=== PATIENT | female | born 1980 | race Caucasian/White ===

== ENCOUNTER 2018-05-07 15:32 | Outpatient (CLI) | payer BC ==
[~2018-05-07] VITALS: Ht 172.7 cm; Wt 136.4 kg
[2018-05-07] MEDS ORDERED: GLUCOPHAGE500 MG PO (15:37)
[2018-05-07] MEDS ORDERED: PRENAVITE1 TAB PO (15:37)
[2018-05-07] MEDS ORDERED: FERROUS SULFAT325 MG PO (15:37)
[2018-05-07 16:42] LABS: BASOPHILS 0.1 % (0-2); EOSINOPHILS 0 % (0-7); HEMATOCRIT 37.6 % (36.0-48.0); HEMOGLOBIN 12.4 g/dL (12-16); IMMATURE GRANULOCYTES 0.8 % (0-5); LYMPHOCYTES 3.1 % (15-50); MCH 26.7 pg (26.0-34.0); MEAN PLATELET VOLUME 10.3 fL (7.4-10.4); MONOCYTES 2.6 % (2-11); NEUTROPHILS 93.4 % (40-80); PLATELET COUNT 223 10x3/uL (130-400); RBC 4.64 10x6/uL (4.00-5.40); RDW 13.9 % (11.5-14.5); WBC 12.7 10x3/uL (4.8-10.8)
[2018-05-07 16:48] LABS: COLOR YELLOW (YELLOW)
[2018-05-07 16:49] LABS: APPEARANCE CLEAR (CLEAR); BILIRUBIN 2+ (NEGATIVE); GLUCOSE NEGATIVE (NEGATIVE); KETONE LARGE mg/dL (NEGATIVE); NITRITE NEGATIVE (NEGATIVE); PROTEIN 1+ mg/dL (NEGATIVE); UROBILINOGEN NORMAL (NORMAL)
[2018-05-07 16:52] LABS: BACTERIA MODERATE /hpf (NONE SEEN); MUCUS <1+ /lpf (NONE SEEN); WHITE CELLS - URINE 0-5 /hpf (0-5)
[2018-05-07 17:16] LABS: ALBUMIN 3.1 g/dL (3.4-5.0); ALKALINE PHOSPHATASE 79 U/L (46-116); ALT (SGPT) 21 U/L (10-68); CALC OSMOLALITY 270 mosm/kg (275-300); CALCIUM 8.3 mg/dL (8.5-10.1); CARBON DIOXIDE 19.9 mmol/L (21.0-32.0); CHLORIDE - SERUM 102 mmol/L (98-107); CREATININE - SERUM 0.7 mg/dL (0.6-1.3); GLUCOSE 165 mg/dL (74-106); POTASSIUM - SERUM 3.6 mmol/L (3.5-5.1); PROTEIN - SERUM 7.1 g/dL (6.4-8.2); SODIUM 133 mmol/L (136-145); UREA NITROGEN 14 mg/dL (7-18); eGFR NON AFRICAN AMERICAN > 90 mL/min (90-120)
[2018-05-07 21:02] VITALS: BP 126/63; Ht 172.7 cm; Wt 136.4 kg
== END 2018-05-08 18:15 | disposition home or self-care (01) ==
LOC: D.LDO 15:32 → D.ER 15:32 → EDSTATUS 16:14 → D.LD 21:33 → D.LDO 05-08 18:15
PROVIDERS: Family Medicine; ATTEND Obstetrics & Gynecology
DX: O26.899 Other specified pregnancy related conditions, unspecified trimester (principal); Z3A.00 Weeks of gestation of pregnancy not specified

== ENCOUNTER 2018-05-12 17:48 | Emergency (ER) | payer BC ==
[~2018-05-12] VITALS: Ht 172.7 cm; Wt 136.4 kg
[~2018-05-12 17:48] MED LIST: FERROUS SULFAT325 MG PO; GLUCOPHAGE500 MG PO; PRENAVITE1 TAB PO
[2018-05-12 17:54] VITALS: Ht 172.7 cm; Wt 136.4 kg
[2018-05-12 18:20] LABS: BASOPHILS 0.2 % (0-2); EOSINOPHILS 1.2 % (0-7); HEMATOCRIT 31.4 % (36.0-48.0); HEMOGLOBIN 10.6 g/dL (12-16); IMMATURE GRANULOCYTES 1.1 % (0-5); LYMPHOCYTES 22.9 % (15-50); MCHC 33.8 g/dL (31.0-37.0); MCV 80.1 fL (80.0-100.0); MEAN PLATELET VOLUME 9.7 fL (7.4-10.4); MONOCYTES 5.8 % (2-11); NEUTROPHILS 68.8 % (40-80); PLATELET COUNT 219 10x3/uL (130-400); RBC 3.92 10x6/uL (4.00-5.40); RDW 14.1 % (11.5-14.5); WBC 8.5 10x3/uL (4.8-10.8)
[2018-05-12 18:35] LABS: APPEARANCE CLEAR (CLEAR); BILIRUBIN NEGATIVE (NEGATIVE); COLOR YELLOW (YELLOW); GLUCOSE NEGATIVE (NEGATIVE); KETONE NEGATIVE (NEGATIVE); NITRITE NEGATIVE (NEGATIVE); PROTEIN NEGATIVE (NEGATIVE); SPECIFIC GRAVITY 1.005 (1.005-1.020); UROBILINOGEN NORMAL (NORMAL)
[2018-05-12 18:38] LABS: ALBUMIN 2.9 g/dL (3.4-5.0); ALKALINE PHOSPHATASE 94 U/L (46-116); ALT (SGPT) 45 U/L (10-68); BACTERIA MODERATE /hpf (NONE SEEN); BILIRUBIN - TOTAL 0.18 mg/dL (0.2-1.3); CALC OSMOLALITY 275 mosm/kg (275-300); CALCIUM 8.4 mg/dL (8.5-10.1); CARBON DIOXIDE 26.3 mmol/L (21.0-32.0); CHLORIDE - SERUM 103 mmol/L (98-107); CREATININE - SERUM 0.6 mg/dL (0.6-1.3); EPITHELIAL CELLS 0-5 /hpf (0-5); GLUCOSE 90 mg/dL (74-106); POTASSIUM - SERUM 3.3 mmol/L (3.5-5.1); PROTEIN - SERUM 7.1 g/dL (6.4-8.2); RED CELLS - URINE 0-5 /hpf (0-5); SODIUM 140 mmol/L (136-145); UREA NITROGEN 5 mg/dL (7-18); WHITE CELLS - URINE 0-5 /hpf (0-5); eGFR NON AFRICAN AMERICAN > 90 mL/min (90-120)
[2018-05-12 18:51] LABS: HCG SERUM POSITIVE (NEGATIVE)
[2018-05-12] MEDS ORDERED: DIFLUCAN150 MG PO (20:22)
[2018-05-12 20:59] VITALS: BP 140/78
== END 2018-05-12 20:35 | disposition home or self-care (01) ==
LOC: D.ER 17:48
PROVIDERS: Family Medicine
DX: O26.851 Spotting complicating pregnancy, first trimester (principal); Z3A.11 11 weeks gestation of pregnancy; O98.811 Other maternal infectious and parasitic diseases complicating pregnancy, first trimester; B37.9 Candidiasis, unspecified

== ENCOUNTER → 2018-08-20 10:35 | Outpatient (CLI) | payer BC ==
[2018-05-12 17:54] VITALS: BMI 45.7
[~2018-08-20 10:35] MED LIST changes: +DIFLUCAN150 MG PO
[2018-08-20 10:58] LABS: APPEARANCE SL CLDY (CLEAR); BILIRUBIN NEGATIVE (NEGATIVE); COLOR YELLOW (YELLOW); GLUCOSE NEGATIVE (NEGATIVE); KETONE NEGATIVE (NEGATIVE); NITRITE NEGATIVE (NEGATIVE); PROTEIN NEGATIVE (NEGATIVE); SPECIFIC GRAVITY 1.025 (1.005-1.020); UROBILINOGEN NORMAL (NORMAL)
== END | disposition home or self-care (01) ==
LOC: D.LDO 10:35
PROVIDERS: ATTEND Obstetrics & Gynecology
DX: O16.9 Unspecified maternal hypertension, unspecified trimester (principal); Z3A.00 Weeks of gestation of pregnancy not specified

== ENCOUNTER → 2018-09-26 11:04 | Outpatient (CLI) | payer BC ==
[2018-05-12 17:54] VITALS: BMI 45.7
[~2018-09-26 11:04] MED LIST changes: +PERCOCET 5-3251 TAB PO; +PROCARDIA XL30 MG PO
== END | disposition home or self-care (01) ==
LOC: D.LDO 11:04
PROVIDERS: ATTEND Obstetrics & Gynecology
DX: O24.913 Unspecified diabetes mellitus in pregnancy, third trimester (principal); Z3A.30 30 weeks gestation of pregnancy

== ENCOUNTER → 2018-10-05 15:56 | Outpatient (CLI) | payer BC ==
[2018-05-12 17:54] VITALS: BMI 45.7
== END | disposition home or self-care (01) ==
LOC: D.LDO 15:56
PROVIDERS: ATTEND Obstetrics & Gynecology
DX: O24.419 Gestational diabetes mellitus in pregnancy, unspecified control (principal); Z3A.31 31 weeks gestation of pregnancy

== ENCOUNTER 2018-10-12 15:01 | Outpatient (CLI) | payer BC ==
[2018-05-12 17:54] VITALS: BMI 45.7
[~2018-10-12 15:01] MED LIST changes: -PERCOCET 5-3251 TAB PO; -PROCARDIA XL30 MG PO
[2018-10-12 18:19] LABS: APPEARANCE CLEAR (CLEAR); BILIRUBIN NEGATIVE (NEGATIVE); COLOR STRAW (YELLOW); GLUCOSE NEGATIVE (NEGATIVE); KETONE SMALL mg/dL (NEGATIVE); NITRITE NEGATIVE (NEGATIVE); PROTEIN NEGATIVE (NEGATIVE); SPECIFIC GRAVITY 1.005 (1.005-1.020); UROBILINOGEN NORMAL (NORMAL)
[2018-10-12 18:20] LABS: BACTERIA FEW /hpf (NONE SEEN); EPITHELIAL CELLS 0-5 /hpf (0-5); RED CELLS - URINE 0-5 /hpf (0-5); WHITE CELLS - URINE 0-5 /hpf (0-5)
== END 2018-10-13 07:30 | disposition home or self-care (01) ==
LOC: D.LDO 15:01 → D.LD 20:47 → D.LDO 10-13 07:30
PROVIDERS: Student in an Organized Health Care Education/Training Program; ATTEND Obstetrics & Gynecology
DX: O47.03 False labor before 37 completed weeks of gestation, third trimester (principal); Z3A.33 33 weeks gestation of pregnancy

== ENCOUNTER → 2018-10-18 10:39 | Outpatient (CLI) | payer BC ==
[2018-05-12 17:54] VITALS: BMI 45.7
== END | disposition home or self-care (01) ==
LOC: D.LDO 10:39
PROVIDERS: ATTEND Obstetrics & Gynecology
DX: O24.419 Gestational diabetes mellitus in pregnancy, unspecified control (principal); Z3A.33 33 weeks gestation of pregnancy

== ENCOUNTER → 2018-10-19 16:20 | Outpatient (CLI) | payer MEDICAID ==
[2018-05-12 17:54] VITALS: BMI 45.7
[2018-10-19 17:03] LABS: BASOPHILS 0.1 % (0-2); EOSINOPHILS 0.7 % (0-7); HEMATOCRIT 28.1 % (36.0-48.0); HEMOGLOBIN 8.8 g/dL (12-16); IMMATURE GRANULOCYTES 0.4 % (0-5); LYMPHOCYTES 18.6 % (15-50); MCH 22.9 pg (26.0-34.0); MCHC 31.3 g/dL (31.0-37.0); MEAN PLATELET VOLUME 10.6 fL (7.4-10.4); MONOCYTES 7.3 % (2-11); NEUTROPHILS 72.9 % (40-80); PLATELET COUNT 168 10x3/uL (130-400); RBC 3.85 10x6/uL (4.00-5.40); RDW 15.3 % (11.5-14.5); WBC 7.4 10x3/uL (4.8-10.8)
[2018-10-19 17:10] LABS: PROTEIN - URINE 1.5 mg/dL (0.0-11.9)
[2018-10-19 17:28] LABS: ALKALINE PHOSPHATASE 192 U/L (46-116); ALT (SGPT) 35 U/L (10-68); BILIRUBIN - DIRECT 0.12 mg/dL (0.00-0.30); BILIRUBIN - INDIRECT 0.21 mg/dL (0.00-1.00); BILIRUBIN - TOTAL 0.33 mg/dL (0.2-1.3); CALC OSMOLALITY 275 mosm/kg (275-300); CALCIUM 8.4 mg/dL (8.5-10.1); CARBON DIOXIDE 23.4 mmol/L (21.0-32.0); CHLORIDE - SERUM 107 mmol/L (98-107); CREATININE - SERUM 0.7 mg/dL (0.6-1.3); POTASSIUM - SERUM 3.8 mmol/L (3.5-5.1); PROTEIN - SERUM 5.4 g/dL (6.4-8.2); SODIUM 141 mmol/L (136-145); UREA NITROGEN 4 mg/dL (7-18); URIC ACID 3.9 mg/dL (2.6-7.2); eGFR NON AFRICAN AMERICAN > 90 mL/min (90-120)
[2018-10-19 17:32] LABS: GLUCOSE 64 mg/dL (74-106)
== END | disposition home or self-care (01) ==
LOC: D.LDO 16:20
PROVIDERS: ATTEND Obstetrics & Gynecology
DX: O10.913 Unspecified pre-existing hypertension complicating pregnancy, third trimester (principal); Z3A.33 33 weeks gestation of pregnancy

== ENCOUNTER → 2018-10-20 17:30 | Outpatient (CLI) | payer MEDICAID ==
[2018-05-12 17:54] VITALS: BMI 45.7
== END | disposition home or self-care (01) ==
LOC: D.LDO 17:30
PROVIDERS: ATTEND Obstetrics & Gynecology
DX: O26.893 Other specified pregnancy related conditions, third trimester (principal); Z3A.00 Weeks of gestation of pregnancy not specified

== ENCOUNTER 2018-10-23 12:24 | Outpatient (CLI) | payer MEDICAID ==
[2018-05-12 17:54] VITALS: BMI 45.7
== END 2018-10-23 12:33 ==
LOC: D.LDO 12:24
PROVIDERS: ATTEND Obstetrics & Gynecology
DX: O10.913 Unspecified pre-existing hypertension complicating pregnancy, third trimester (principal); Z3A.34 34 weeks gestation of pregnancy

== ENCOUNTER → 2018-10-26 11:58 | Outpatient (CLI) | payer SELFPAY ==
[2018-05-12 17:54] VITALS: BMI 45.7
[2018-10-26 12:43] LABS: BASOPHILS 0.1 % (0-2); EOSINOPHILS 0.5 % (0-7); HEMATOCRIT 26.6 % (36.0-48.0); HEMOGLOBIN 8.1 g/dL (12-16); IMMATURE GRANULOCYTES 0.6 % (0-5); LYMPHOCYTES 16.9 % (15-50); MCH 22.2 pg (26.0-34.0); MCHC 30.5 g/dL (31.0-37.0); MCV 72.9 fL (80.0-100.0); MEAN PLATELET VOLUME 10.2 fL (7.4-10.4); MONOCYTES 5.9 % (2-11); PLATELET COUNT 169 10x3/uL (130-400); RBC 3.65 10x6/uL (4.00-5.40); RDW 15.3 % (11.5-14.5)
[2018-10-26 13:08] LABS: APPEARANCE CLEAR (CLEAR); BILIRUBIN NEGATIVE (NEGATIVE); COLOR YELLOW (YELLOW); GLUCOSE NEGATIVE (NEGATIVE); KETONE MODERATE mg/dL (NEGATIVE); NITRITE NEGATIVE (NEGATIVE); PROTEIN NEGATIVE (NEGATIVE)
[2018-10-26 13:08] LABS: ALBUMIN 2.2 g/dL (3.4-5.0); ALKALINE PHOSPHATASE 173 U/L (46-116); ALT (SGPT) 25 U/L (10-68); BILIRUBIN - DIRECT 0.05 mg/dL (0.00-0.30); BILIRUBIN - INDIRECT 0.24 mg/dL (0.00-1.00); BILIRUBIN - TOTAL 0.29 mg/dL (0.2-1.3); CALC OSMOLALITY 263 mosm/kg (275-300); CALCIUM 8.1 mg/dL (8.5-10.1); CARBON DIOXIDE 25.8 mmol/L (21.0-32.0); CHLORIDE - SERUM 105 mmol/L (98-107); CREATININE - SERUM 0.6 mg/dL (0.6-1.3); GLUCOSE 86 mg/dL (74-106); POTASSIUM - SERUM 3.5 mmol/L (3.5-5.1); PROTEIN - SERUM 5.4 g/dL (6.4-8.2); SODIUM 134 mmol/L (136-145); UREA NITROGEN 5 mg/dL (7-18); URIC ACID 3.5 mg/dL (2.6-7.2); eGFR NON AFRICAN AMERICAN > 90 mL/min (90-120)
[2018-10-26 13:09] LABS: BACTERIA MODERATE /hpf (NONE SEEN); MUCUS <1+ /lpf (NONE SEEN); RED CELLS - URINE RARE /hpf (0-5)
== END | disposition home or self-care (01) ==
LOC: D.LDO 11:58
PROVIDERS: Student in an Organized Health Care Education/Training Program; ATTEND Obstetrics & Gynecology
DX: O16.3 Unspecified maternal hypertension, third trimester (principal); Z3A.34 34 weeks gestation of pregnancy

== ENCOUNTER → 2018-10-30 13:37 | Outpatient (CLI) | payer SELFPAY ==
[2018-05-12 17:54] VITALS: BMI 45.7
== END | disposition home or self-care (01) ==
LOC: D.LDO 13:37
PROVIDERS: ATTEND Obstetrics & Gynecology
DX: O26.893 Other specified pregnancy related conditions, third trimester (principal); Z3A.35 35 weeks gestation of pregnancy

== ENCOUNTER → 2018-11-02 16:05 | Outpatient (CLI) | payer SELFPAY ==
[2018-05-12 17:54] VITALS: BMI 45.7
== END | disposition home or self-care (01) ==
LOC: D.LDO 16:05
PROVIDERS: ATTEND Obstetrics & Gynecology
DX: O26.90 Pregnancy related conditions, unspecified, unspecified trimester (principal)

== ENCOUNTER → 2018-11-06 11:53 | Outpatient (CLI) | payer SELFPAY ==
[2018-05-12 17:54] VITALS: BMI 45.7
== END | disposition home or self-care (01) ==
LOC: D.LDO 11:53
PROVIDERS: ATTEND Student in an Organized Health Care Education/Training Program
DX: O24.419 Gestational diabetes mellitus in pregnancy, unspecified control (principal); Z3A.36 36 weeks gestation of pregnancy

== ENCOUNTER → 2018-11-09 10:08 | Outpatient (CLI) | payer MEDICAID ==
[2018-05-12 17:54] VITALS: BMI 45.7
== END | disposition home or self-care (01) ==
LOC: D.LDO 10:08
PROVIDERS: ATTEND Student in an Organized Health Care Education/Training Program
DX: O24.419 Gestational diabetes mellitus in pregnancy, unspecified control (principal)

== ENCOUNTER → 2018-11-13 10:57 | Outpatient (CLI) | payer MEDICAID ==
[2018-05-12 17:54] VITALS: BMI 45.7
[~2018-11-13 10:57] MED LIST changes: +PERCOCET 5-3251 TAB PO; +PROCARDIA XL30 MG PO
== END | disposition home or self-care (01) ==
LOC: D.LDO 10:57
PROVIDERS: ATTEND Obstetrics & Gynecology
DX: O24.419 Gestational diabetes mellitus in pregnancy, unspecified control (principal)

== ENCOUNTER 2018-11-18 05:08 | Inpatient (IN) | payer MEDICAID ==
[2018-11-18] VITALS (11 sets, daily range): BP systolic 130–165; BP diastolic 69–86; Ht 172.7 cm; Wt 137.4 kg
[~2018-11-18] VITALS: Ht 172.7 cm; Wt 137.4 kg
[~2018-11-18 05:08] MED LIST changes: -PERCOCET 5-3251 TAB PO; -PROCARDIA XL30 MG PO
[2018-11-18 06:04] LABS: HEMATOCRIT 29.5 % (36.0-48.0); HEMOGLOBIN 8.8 g/dL (12-16); MCH 21.8 pg (26.0-34.0); MCHC 29.8 g/dL (31.0-37.0); MEAN PLATELET VOLUME 9.7 fL (7.4-10.4); RBC 4.04 10x6/uL (4.00-5.40); RDW 16.6 % (11.5-14.5); WBC 10.2 10x3/uL (4.8-10.8)
--- NOTE | 2018-11-18 08:30 | NUR ---
DR CHAUDHRY HERE. V.O. RECEIVED FOR [facility] AT 1200 TODAY.
--- NOTE | 2018-11-18 08:30 | NUR ---
RECEIVED PT FROM RR VIA PT BED, PT AWAKE, ALERT, ORIENTED TO TIME, PLACE, PERSON, AND SITUATION. DENIES C/O PAIN. VSS. AFEBRILE. RESP EVEN AND UNLABORED, HEART RRR AT 54 BPM APICALLY. LUNGS CTAB, ABD SOFT AND APPROPRIATELY TENDER TO LIGHT PALPATION, FUNDUS FIRM AT U/U AND MIDLINE, LOCHIA RUBRA MODERATE AMOUNT, NO CLOTS, ICE PACK OVERLAY ABD INCISIONAL DRESSING. CRANE CATHETER IN PLACE DRAINING CONCENTRATED DARK YELLOW URINE TO GRAVITY DRAINAGE, STAT LOCK DEVICE PLACED ON INNER RIGHT THIGH. PT UNABLE TO MOVE B LE BUT CAN WIGGLE TOES B. PEDAL PULSES EQUAL AT 1+ B. B UE AND B LE COOL TO TOUCH, SCDS APPLIED TO B LE AND FUNCTIONING APPROPRIATELY. CARLOS'S SIGN NEGATIVE B. LEFT A/C CONVERTED TO SALINE LOCK GENTAMYCIN INFUSION COMPLETED WHILE IN RR. RIGHT A/C PIV PATENT INFUSING NS WITH 20 UNITS PITOCIN ADDED AT 125ML/HR TO IVAC PUMP, BOTH A/C SITES BENIGN TO INSPECTION. DISCUSSED PLAN OF CARE, USE OF PAIN MEDS PRN, INCENTIVE SPIROMETRY, CLEAR LIQUID DIET, USUAL LENGTH OF STAY AFTER . QUESTIONS ANSWERED, PT STATES UNDERSTANDING OF ALL INSTRUCTIONS PROVIDED. CALL LIGHT IN EASY REACH, HOB ELEVATED 20 DEGREES, BED BRAKES LOCKED, SR UP X2, BED IN LOW POSITION, FAMILY AT BS. WILL MONITOR.
--- NOTE | 2018-11-18 08:50 | NUR ---
PT AAOX4, RESP EVEN AND UNLABORED, DENIES C/O PAIN OR DISCOMFORT, FF AT U/U AND MIDLINE, LOCHIA RUBRA MODERATE AMOUNT, NO CLOTS, PERICARE PROVIDED, CRANE WITH DARK YELLOW URINE TO TUBING, DIET [place] SOD[place] AND CUP OF ICE WATER PROVIDED UPON REQUEST. CALL LIGHT IN EASY REACH. WILL MONITOR.
--- NOTE | 2018-11-18 09:05 | NUR ---
NAD NOTED, RESP EVEN AND UNLABORED, VSS. FF AT U/U, LOCHIA RUBRA MODERATE AMOUNT, NO NEEDS VOICED, TOLERATING PO FLUIDS WELL. CALL LIGHT IN EASY REACH.
--- NOTE | 2018-11-18 09:40 | NUR ---
PT VISITING WITH FAMILY AT BS, NAD NOTED, DENIES NEEDS OR CONCERNS, FF AT U/U AND RAHEEL GALVEZ MODERATE AMOUNT, LTI CDI TO INSPECTION, ICE PACK OVERLAY IN PLACE. PIV SITES BENIGN TO INSPECTION AT THIS TIME AND COVERED WITH WASHCLOTH/TAPE TO PREVENT DISLODGING SINCE THERE WAS DIFFICULTY PLACING THIS AM. WILL MONITOR.
--- NOTE | 2018-11-18 10:36 | NUR ---
phoned dr flores to report elevated blood pressures, relayed that pt does not want pain medicine until sees baby leave for [facility]. will give pain meds and notify md of bp after pain meds.
--- NOTE | 2018-11-18 10:53 | NUR ---
updated dr flores on pt bp after giving prn pain meds. no new orders received.
--- NOTE | 2018-11-18 11:15 | NUR ---
BP REMAINS ELEVATED, LIGHTS DIMMED, FAMILY AT BS, FUNDUS FIRM AT U/U AND MIDLINE, LOCHIA RUBRA MODERATE AMOUNT, CRANE WITH CONCENTRATED URINE IN TUBING AND TO GRAVITY DRAINAGE, PT ABLE TO MOVE B LE, LARGE BP CUFF PLACED ON L UE AND PT INSTRUCTED TO KEEP STRAIGHT WHEN BP TAKEN. STATES UNDERSTANDING AND WILL MONITOR.
[2018-11-18 11:39] LABS: BASOPHILS 0.1 % (0-2); EOSINOPHILS 0 % (0-7); HEMATOCRIT 28.5 % (36.0-48.0); HEMOGLOBIN 8.4 g/dL (12-16); IMMATURE GRANULOCYTES 0.3 % (0-5); MCH 21.5 pg (26.0-34.0); MCHC 29.5 g/dL (31.0-37.0); MCV 73.1 fL (80.0-100.0); MEAN PLATELET VOLUME 10.2 fL (7.4-10.4); MONOCYTES 7.7 % (2-11); NEUTROPHILS 85.9 % (40-80); PLATELET COUNT 201 10x3/uL (130-400); RDW 16.5 % (11.5-14.5); WBC 14.8 10x3/uL (4.8-10.8)
--- NOTE | 2018-11-18 12:15 | NUR ---
CLEAR LIQUIDS PROVIDED TO PT FOR LUNCH, FAMILY AT BS, DENIES NEEDS OR CONCERNS, RESP EVEN AND UNLABORED, CALL LIGHT IN EASY REACH. WILL MONITOR.
--- NOTE | 2018-11-18 13:34 | NUR ---
PT AWAKE, SITTING UP AT 30 DEGREES IN BED, TOLERATING CLEAR LIQUIDS, FUNDUS FIRM AT U/1 AND MIDLINE, LOCHIA RUBRA MODERATE TO LARGE AMOUNT WITH NO CLOTS VISBLE, PERICARE PROVIDED, REPOSITIONED TO COMFORT, CALL LIGHT IN EASY REACH, CONTINUE TO MONITOR.
--- NOTE | 2018-11-18 14:18 | NUR ---
ROUNDS COMPLETED, PT TALKING ON CELL PHONE WHILE SITTING UP IN BED, DENIES NEEDS CONCERNS OR DESIRES AT THIS TIME, CALL LIGHT IN EASY REACH, WILL MONITOR.
--- NOTE | 2018-11-18 15:52 | NUR ---
PT AAOX4, TALKATIVE, NAD NOTED. RESP EVEN AND UNLABORED, INCENTIVE SPIROMETRY UP TO 2500ML INSPIRED VOLUME, HUNG 1000ML NS WITH 20 UNITS PITOCIN ADDED AND INFUSING AT 125ML/HR PER IVAC PUMP, FF AT U/1 AND MIDLINE, LOCHIA RUBRA MODERATE AMOUNT, PERICARE PROVIDED, REPOSITIONED TO COMFORT, SCDS ON BILATERALLY AND FUNCTIONING APPROPRIATELY. CRANE CATHETER TO GRAVITY DRAINAGE WITH CONCENTRATED APPEARING URINE NOTED IN TUBING AND COLLECTION CHAMBER. DENIES NEED FOR PAIN MEDS ON INQUIRY, FAMILY AND FRIENDS AT BS. WILL MONITOR. CALL LIGHT IN EASY REACH.
--- NOTE | 2018-11-18 16:22 | NUR ---
PT C/O ABD INCISIONAL PAIN AND CRAMPING RATES 5/10 ON NUMERIC PAIN SCALE, PRN PAIN MED GIVEN SIVP TO LEFT A/C WITHOUT DIFFICULTY, DINNER TRAY PROVIDED WITH CLEAR LIQUIDS. NAD NOTED AT THIS TIME, WILL CONTINUE TO MONITOR.
--- NOTE | 2018-11-18 17:30 | NUR ---
consumed 100% dinner tray, tolerating clear liquids well, resp even and unlabored, denies needs or concerns at this time, denies c/o pain. call light in easy reach continue to monitor.
--- NOTE | 2018-11-18 18:10 | NUR ---
PT TURNED TO LEFT LATERAL TILT POSITION, PERIPADS/CHUX REPLACED, PERICARE AND CRANE CARE PROVIDED PER FACILITY PROTOCOL, FRESH CUP OF ICE WATER AND DIET LEMON [place] SODA PROVIDED PER PT REQUEST, GOWN CHANGED PER REQUEST, ADDITIONAL LINENS PROVIDED TO PT MOTHER WELL. DENIES NEED FOR PAIN MEDS OR OTHER CONCERNS AT THIS TIME, CALL LIGHT IN EASY REACH, WILL MONITOR.
--- NOTE | 2018-11-18 18:55 | NUR ---
report given to oncoming shift staff.
--- NOTE | 2018-11-18 19:17 | NUR ---
RECEIVED BEDSIDE SHIFT REPORT, INFORMED PT THAT I WILL BE BACK SHORTLY TO DO ASSESSMENT, PT VERBALIZES UNDERSTANDING, DENIES NEEDS AT THIS TIME, PT'S MOM AT BEDSIDE
--- NOTE | 2018-11-18 20:15 | NUR ---
ASSESSMENT PER FLOW SHEET, VS OBTAINED, SALINE LOCK IN LEFT AC INTACT WITH NO REDNESS OR EDEMA, IV IN RIGHT AC INTACT INFUSING VIA PUMP NS WITH PITOCIN AT 125 ML/HR, FF, ML, U/1, LITE BLEEDING NOTED WITH NO CLOTS, BIKINI INC WITH LARGE DRESSING CDI WITH NO DRAINAGE NOTED, FRESH ICE PACK TO ABD, CRANE CATH INTACT DRAINING DARK YELLOW URINE, 200 MLS EMPTIED FROM CRANE CHAMBER TO CRANE BAG, PT DENIES FLATUS, PT INST ON AND DEMONSTRATED I.S., PT REQUESTED AND SERVED FRESH H20, SCD'S ON AND WORKING PROPERLY, PT DENIES FURTHER NEEDS, PT'S MOM AT BEDSIDE
--- NOTE | 2018-11-18 20:35 | NUR ---
DR CHAUDHRY NOTIFIED, INQUIRED ABOUT 12 HOUR POST OP ORDERS, ORDERS RECEIVED, READ BACK AND VERIFIED
--- NOTE | 2018-11-18 21:00 | NUR ---
POC DISCUSSED WITH PT REGARDING REMOVAL OF CRANE CATH, SALINE LOCK IV, AMB, DIET, AND PAIN MED, PT STATES "I CAN'T TAKE ADVIL SINCE I HAVE HAD THIS GASTRIC BY [facility], THEY SAID TO ONLY TAKE TYLENOL", PT VERBALIZES UNDERSTANDING, ADM MORPHINE DILUTED IN 5MLS OF NS ADM SIVP PER MD ORDERS, SEE EMAR, PT REQUESTED AND SERVED SANDWICH TRAY, INFORMED PT THAT I WILL COME BACK IN ABOUT 30 MINUTES OR SO TO SALINE LOCK IV, REMOVE CRANE, AND TRANSFER TO ROOM 1257, PT VERBALIZES UNDERSTANDING PT DENIES FURTHER NEEDS AT THIS TIME
--- NOTE | 2018-11-18 21:29 | NUR ---
DR CHAUDHRY NOTIFIED REGARDING ADVIL, ORDERS FOR ADVIL D/C'ED AND NEW ORDERS FOR TYLENOL, AND ALSO TO DO A FASTING BLOOD SUGAR AT 6AM, ORDERS READ BACK AND VERIFIED
--- NOTE | 2018-11-18 21:53 | NUR ---
PT FINISHED EATING SANDWICH TRAY, IV CONVERTED TO SALINE LOCK, BOTH SALINE LOCKS FLUSHED WITH 10MLS EACH OF NS WITH NO DIFFICULTY, CRANE CATH REMOVED, TIP INTACT, PT PELON WELL, PT INST ON AND VERBALIZES UNDERSTANDING OF AMB TO BR, PT TO SIDE OF BED, PT AMB TO BR WITH ASSISTANCE, GAIT STEADY, PT TO COMMODE, REPORTS VOIDING "A LITTLE", INFORMED PT THAT THERE WILL BE A [place] HAT IN OTHER ROOM FOR HER TO BE SURE AND USE, PT VERBALIZES UNDERSTANDING, ASSISTED PT WITH LLUVIA CARE, LLUVIA PAD AND PANTIES, PT'S MOM SHOWN ROOM 1257, ASSISTED HER WITH ALL BELONGINGS, PT TO , TRANSFERRED TO ROOM 1257
--- NOTE | 2018-11-18 22:22 | NUR ---
SCD'S PLACED ON PT, WORKING PROPERLY, ORIENTED TO ROOM, BED IN LOW POSITION, SIDE RAILS X 2, CALL LIGHT IN REACH, ASSISTED PT'S MOM WITH COUCH/BED
[2018-11-19] VITALS (10 sets, daily range): BP systolic 130–159; BP diastolic 70–91
--- NOTE | 2018-11-19 00:20 | NUR ---
PT RESTING WITH EYES CLOSED, AROUSES TO SOFT VERBAL STIMULATION, VS OBTAINTED, PT UP TO BR WITH ASSISTANCE, VOIDED 600 MLS OF LIGHTLY BLOOD TINGED URINE WITH NO DIFFICULTY, ASSISTED PT WITH [place] PAD AND PANTIES, PT BACK TO BED, FRESH ICE PACK TO ABD, SCD'S RECONNECTED AND WORKING PROPERLY, DENIES PAIN AT THIS TIME, REQUESTS PAIN MED AT 2AM, PT'S MOM AT BEDSIDE
--- NOTE | 2018-11-19 02:06 | NUR ---
PT RESTING WITH EYES CLOSED, AROUSES TO SOFT VERBAL STIMULATION, ADM PERCOCET PER MD ORDERS, SEE EMAR, PT DENIES FURTHER NEEDS AT THIS TIME
--- NOTE | 2018-11-19 04:32 | NUR ---
PT RESTING WITH EYES CLOSED, RESP QUIET, NO DISTRESS NOTED, LEFT UNDISTURBED AT THIS TIME, PT'S MOM ASLEEP ON COUCH
[2018-11-19 05:50] LABS: BASOPHILS 0.2 % (0-2); EOSINOPHILS 0.8 % (0-7); IMMATURE GRANULOCYTES 0.4 % (0-5); LYMPHOCYTES 11.4 % (15-50); MCH 21.2 pg (26.0-34.0); MCHC 28.8 g/dL (31.0-37.0); MCV 73.7 fL (80.0-100.0); MONOCYTES 8.6 % (2-11); NEUTROPHILS 78.6 % (40-80); PLATELET COUNT 190 10x3/uL (130-400); RBC 3.53 10x6/uL (4.00-5.40); RDW 16.7 % (11.5-14.5)
[2018-11-19 05:58] LABS: WBC 10.6 10x3/uL (4.8-10.8)
--- NOTE | 2018-11-19 05:58 | NUR ---
PT COVERAGE SPECIALIST LIGHT, PT REQUESTING FSBS NOW SO SHE CAN EAT, INFORMED PT THAT I I WILL BE THERE IN JUST A FEW MINUTES, PT VERBALIZES UNDERSTANDING
[2018-11-19 05:59] LABS: HEMOGLOBIN 7.5 g/dL (12-16)
--- NOTE | 2018-11-19 06:02 | NUR ---
OBTAINED FSBS AND VS, PT REPORTS VOIDING TWICE, ONCE 1000 AND THEN 500, PT REPORTS LITE BLEEDING WITH NO CLOTS, INFORMED PT OF LAB WORK AND THAT I WILL CALL DR CHAUDHRY REGARDING VS, FSBS, VOIDS, AND LAB, PT VERBALIZES UNDERSTANDING, DENIES NEEDS OR PAIN AT THIS TIME, PT'S MOM AT BEDSIDE
--- NOTE | 2018-11-19 06:13 | NUR ---
DR CHAUDHRY NOTIFIED, REPORT OF PT'S VS, FSBS, OUTPUT, LAB, AND ASYMPTOMATIC, ORDERS RECEIVED TO GIVE THE PT TO RECEIVE 1 UNIT OF PRBC, ORDERS READ BACK AND VERIFIED
--- NOTE | 2018-11-19 06:25 | NUR ---
INFORMED PT OF OPTION OF RECEIVING 1 UNIT OF PRBC, PT OPTS TO HAVE THE 1 UNIT TRANSFUSED, PT VERBALIZES UNDERSTANDING OF BLOOD TRANSFUSION
--- NOTE | 2018-11-19 07:10 | NUR ---
SHIFT REPORT TO DAY SHIFT
--- NOTE | 2018-11-19 07:29 | NUR ---
ASSUMED CARE OF THIS PATIENT AT THIS TIME. SITTING UP IN BED WATCHING TV. WAITING ON BREAKFAST TO BE SERVED. WILL COMPLETE SHIFT ASSESSMENT AFTER BREAKFAST. WILL RECIEVE 1 U PRBC THIS AM. AT [facility] IN [place]. 1 DAY POST OP C/S, A+, RUBELLA IMMUNE, WILL CHECK TDAP AND FLU VACCINE STATUS. SIDE RAILS UP X 2, CALL LIGHT IN REACH, VISITORS ON COUCH.
--- NOTE | 2018-11-19 07:29 | NUR ---
ASSUMED CARE OF THIS PATIENT SITTING UP IN BED HOLDING . BREAKFAST TRAY WAS SERVED. TEMP 98.1. WILL COMPLETE SHIFT ASSESSMENT AFTER BREAKFAST. BREASTFEEDER, NON-SMOKER, O+, GBS NEG, RUBELLA IMMUNE, WILL CHECK TDAP STATUS AND FLU VACCINE STATUS. ANTICIPATE DC HOME TODAY.
--- NOTE | 2018-11-19 08:45 | NUR ---
PERCOCET 10 MG GIVEN PO FOR RELIEF OF 6/10 INCISIONAL BURNING AND CRAMPING. JUST FINISHED PUMPING. WILL COMPLETE SHIFT ASSESSMENT NOW. DESIRES TO SHOWER BEFORE BLOOD TRANSFUSION IS INITIATED. HAD FLU AND TDAP VACCINATIONS DURNING PER PT STATEMENT.
--- NOTE | 2018-11-19 09:23 | NUR ---
DR CHAUDHRY HERE. NOTIFIED OF BP'S AND METHOD OF TAKING. ALSO NOTIFIED PT JUST RECEIVED PAIN MEDICATION. NO NEW ORDERS AT THIS TIME.
--- NOTE | 2018-11-19 10:20 | NUR ---
FIRST UNIT PRBC STARTED AFTER TWO PERSON VERIFICATION COMPLETED WITH MAUREEN WEST, RN IN ROOM. INFUSED NS R AC PRIOR TO STARTING BLOOD IV SITE PATENT WITHOUT PAIN, ERRYTHEMA. BLOOD STARTED AT 75 ML/HR PER ALARIS PUMP. SITTING IN BED. REVIEWED SIGNS OF POSSIBLE TRANSFUSION REACTION, PERMIT ON CHART. VS OBTAINED, SEE FLOW SHEET. SIDE RAILS UP X 2, CALL LIGHT IN REACH.
--- NOTE | 2018-11-19 10:35 | NUR ---
REMAINED IN ROOM WITH PT DURING FIRST 15 MINS OF TRANSFUSION. NO ADVERSE REACTIONS NOTED. INCREASED TRANSFUSION RATE TO 200 ML/HR PER ALARIS PUMP. IV SITE PATENT WITHOUT SIGNS OF INFILTRATION. VS OBTAINED. REMAINS AFEBRILE. SIDE RAILS UP X 2, CALL LIGHT IN REACH, VISITOR IN ROOM.
--- NOTE | 2018-11-19 11:15 | NUR ---
BLOOD TRANSFUSING WITHOUT DIFFICULTY. DENIES ANY PROBLEMS OR NEEDING ANYTHING. LOOKING AT CELL PHONE. VISITOR IN ROOM. SAYS SHE FEELS TIRED. LIGHTS TURNED ON LOW. SIDE RAILS UP X 2, CALL LIGHT IN REACH.
--- NOTE | 2018-11-19 12:00 | NUR ---
BLOOD TRANSFUSION COMPLETED. VS OBTAINED, NO ADVERSE REACTIONS NOTED, SALINE LOCK FLUSHED WITH NS. UP TO BATHROOM TO VOID. CHOCOLATE PUDDY GIVEN FOR SNACK. WAITING ON LUNCH TRAY. NO ADDITONAL REQUESTS. VISITOR X 1 IN ROOM. TO CALL IF ANYTHING IS NEEDED. INSTRUCTED ON AREAS IN WHICH SHE CAN AMBULATE. VERBALIZED UNDERSTANDING.
--- NOTE | 2018-11-19 13:50 | NUR ---
SITTING IN BED WATCHING TV. SAYS SHE AMBULATED IN [place] WITHOUT PROBLEMS. DENIES NEEDING ANYTHING FOR PAIN AT THIS TIME OR NEED ANYTHING ELSE. SAYS SHE WAS ABLE TO GET HER OWN [place] DRINK WHEN WALKING. VISITOR X 1 IN ROOM. DISCUSSED POC TODAY - CBC, VS AT 1600, TO CALL IF NEEDING ANYTHING FOR PAIN OR ANYTHING ELSE. VERBALIZED UNDERSTANDING. SIDE RAILS UP X 2, CALL LIGHT IN REACH.
--- NOTE | 2018-11-19 15:37 | NUR ---
SITTING UP IN BED PUMPING BREASTS. 0/10 PAIN WHEN SITTING STILL, INCREASES TO 6 WHEN WALKING. 5/10 INTERMITTENT CRAMPING. PERCOCET 10 MG GIVEN PO AFTER DISCUSSING PAIN MANAGEMENT OPTIONS. NO OTHER REQUESTS. FRESH WATER GIVEN. UP AD JUSTINA. CALL LIGHT IN REACH. TO CALL IF ANYTHING IS NEEDED.
[2018-11-19 16:12] LABS: BASOPHILS 0.1 % (0-2); EOSINOPHILS 0.9 % (0-7); HEMATOCRIT 27.2 % (36.0-48.0); IMMATURE GRANULOCYTES 0.5 % (0-5); LYMPHOCYTES 13.9 % (15-50); MCH 22.2 pg (26.0-34.0); MCHC 29.4 g/dL (31.0-37.0); MCV 75.3 fL (80.0-100.0); MEAN PLATELET VOLUME 10.2 fL (7.4-10.4); NEUTROPHILS 75.6 % (40-80); PLATELET COUNT 203 10x3/uL (130-400); RBC 3.61 10x6/uL (4.00-5.40); RDW 16.9 % (11.5-14.5)
--- NOTE | 2018-11-19 16:50 | NUR ---
RESULTS OF MOST CURRENT CBC GIVEN TO DR CHAUDHRY. NO NEW ORDERS RECEIVED. PT SITTING UP IN BED PUMPING SECOND BREAST. ATE APPROX 35% OF DINNER. PLANS TO HAVE SOMEONE BRING HER DINNER. NO REQUESTS AT PRESENT. TO CALL IF ANYTHING IS NEEDED.
--- NOTE | 2018-11-19 18:10 | NUR ---
AMBULATED FROM 1257 TO L&D AND BACK TO ROOM. TOLERATED WELL. DENIES NEEDING ANYTHING. VISITOR X 1 PRESENT. TO CALL IF ANYTHING IS NEEDED.
--- NOTE | 2018-11-19 19:00 | NUR ---
PT. PUMPING BREAST AT THIS TIME. DENIES ANY NEEDS AT THIS TIME.
--- NOTE | 2018-11-19 20:35 | NUR ---
PT. LYING ON BACK WITH HOB AT 35 DEGREES. VITAL SIGNS OBTAINED. DENIES PAIN AT THIS TIME. STATES PAINFUL WHEN GETTING OUT OF BED BUT AFTER THAT POINT SHE STATES SHE IS ABLE TO WALK WITHOUT PROBLEMS. ABD. INCISION CLEAN AND DRY. LOCHIA RUBRA SCANT. BREATH SOUNDS CLEAR AND BOWEL SOUNDS AUDIBLE. REPORTS PASSING FLATUS. PT. INQUIRING IF SHE COULD GET SALINE LOCKS OUT OF AC AREA. STATES HER ARMS ARE SORE. INFORMED PT. THAT AT THIS POINT NO FURTHER LABS ARE ORDERED AND IT SEEMS A DISCHARGE IS ANTICIPATED FOR THE AM IF ANY FURTHER IV MANAGEMENT NEEDED SHE WOULD HAVE TO HAVE IV RESTARTED. PT AGREEABLE TO SAME. DISCUSSED SCDS WHICH ARE CURRENTLY NOT IN USE. INFORMED PT. THAT IF SHE WOULD CALL THIS NURSE WHEN SHE IS READY TO SLEEP TONIGHT THAT NURSE WOULD COME REAPPLY SCDS TO USE WHILE SHE SLEPT. INSTRUCTED PT. TO BE SURE AND REMEMBER SCDS ARE ON LEGS DURING THE NIGHT BEFORE SHE GETS UP TO THE BATHROOM. PT. STATES UNDERSTANDING.
--- NOTE | 2018-11-19 20:45 | NUR ---
IV SALINE LOCKS DISCONTINUED IN RT AND LT AC AREAS WITH INTACT CATH. TIPS NOTED.
--- NOTE | 2018-11-19 21:45 | NUR ---
PT MEDICATED WITH PERCOCET 10 FOR PAIN LEVEL OF 8 FOR INCISIONAL PAIN. WILL CONTINUE TO MONITOR. Lorri DAHL RN
--- NOTE | 2018-11-19 22:55 | NUR ---
PT. PUMPING BREAST AT PRESENT. INFORMED PT. TO PUSH CALL LIGHT WITH PUMPING COMPLETED AND VITAL SIGNS WILL BE OBTAINED AT THAT TIME. PT. AGREEABLE.
--- NOTE | 2018-11-19 23:30 | NUR ---
PT. CALLS THAT SHE HAS COMPLETED PUMPING. AGAIN STATES THAT SHE DID NOT HAVE ANY RESULTS FROM PUMPING. ATTEMPTED TO ENCOURAGE PT. THAT THE STIMULATION OF THE BREAST WITH REGULAR PUMPING WILL HELP WITH PRODUCTION . PT. STATES THAT SHE ALSO FEELS THAT WHEN SHE CAN HOLD HER INFANT THAT IT WILL ALSO BE EASIER WITH THE . SCDS SLEEVES APPLIED AND CONNECTED TO PUMP AND FUNCTIONAL.
--- NOTE | 2018-11-19 23:31 | NUR ---
REPORTS SHE DOES NOT HAVE ANY PAIN.
--- NOTE | 2018-11-20 01:40 | NUR ---
LYING ON BACK WITH EYES CLOSED. RESPIRATIONS UNLABORED.SCDS ON AND FUNCTIONAL.
--- NOTE | 2018-11-20 04:15 | NUR ---
VITAL SIGNS STARTED. PT. C/O PAIN. POSITIONED PT. TO LT TILT.
--- NOTE | 2018-11-20 04:15 | NUR ---
AWAKE AT PRESENT. STATES SHE HAS SOME PAIN . RATES 6 OF 10 FOR INCISIONAL DISCOMFORT. STATES SHE AWAKENED FEELS A LITTLE NAUSEAOUS. STATES SHE ATE A COUPLE OF PIECES OF CANDY AND FELT BETTER. OFFERED BOO AND PT AGREED. PT. STATES SHE HAS BEEN UP TO BATHROOM A COUPLE OF TIMES SO DESIRES TO LEAVE OFF SCDS AT THIS TIME.
[2018-11-20 04:19] VITALS: BP 148/82
--- NOTE | 2018-11-20 04:22 | NUR ---
PAIN MED GIVEN ORDERED. JELLO X 2 GIVEN TO PT. LYING ON LT SIDE.
[2018-11-20 05:00] VITALS: BP 141/74
--- NOTE | 2018-11-20 05:00 | NUR ---
AWAKENED PT FOR BP CHECK. RELATES THAT HER PAIN IS A 0 OF 10 ON PAIN SCORE. AFTER BP CHECK , DISCUSSED WITH PT. THAT SHE NEEDS TO KEEP PAIN IN CONTROL WHEN SHE GETS OUT OF HOSPITAL. PT. STATED UNDERSTANDING.
--- NOTE | 2018-11-20 07:30 | NUR ---
DR CHAUDHRY VISITS WITH PT.
[2018-11-20 08:15] VITALS: BP 158/87
--- NOTE | 2018-11-20 08:15 | NUR ---
RECEIVED PT AMBULATORY IN ROOM. PT TO BED FOR ASSESSMENT. VSS. HRRR WITHOUT AUDIBLE MURMUR. BBS CLEAR. BS X 4. ABDOMEN SOFT/NON-DISTENDED. FUNDUS FIRM AT U/1. RUBRA LOCHIA SMALL AMT. PT DENIES HEAVY BLEEDING OR PASSING CLOTS. ABDOMINAL INCISION WITH SMALL AREA TO PT LEFT WITH SEROSANGUINOUS DISCHARGE NOTED. PERIPAD TO INCISION. PT INSTRUCTED ON INCISIONAL CARE. VERBALIZES UNDERSTANDING. NEG HOMANS' SIGN. PPP. 1+/1+ PITTING EDEMA NOTED TO BLE. PT DENIES HEADACHE, VIS PROBLEMS, EPIG OR RUQ PAIN. PT STATES DESIRE TO DC HOME SOON PT ON WAY TO INTERNET SECURITY SPECIALIST PT. PT GIVEN PROCARDIA 30 MG PO ORDERED. PT STATES INCISIONAL PAIN OF "4" ON 0-10 PAIN SCALE. REQUESTS AND RECEIVES PERCOCET 5/325 ORDERED FOR PAIN. INSTRUCTED ON MEDS. VERBALIZES UNDERSTANDING.
--- NOTE | 2018-11-20 08:46 | NUR ---
DR CHAUDHRY ON UNIT. NOTIFIED OF PT REQUEST TO DC HOME SOON AND PROCARDIA GIVEN 30 MINUTES AGO. STATES TO RECHECK BP IN 30 MINUTES.
--- NOTE | 2018-11-20 08:50 | NUR ---
PT AMBULATORY IN HALLS.
[2018-11-20 09:15] VITALS: BP 151/94
--- NOTE | 2018-11-20 09:15 | NUR ---
VS NOTED. PT DENIES PAIN. DR CHAUDHRY ON UNIT. NOTIFIED OF PT BP. NO NEW ORDERS AT THIS TIME.
[2018-11-20] MEDS ORDERED: PERCOCET 5-3251 TAB PO (09:58)
[2018-11-20] MEDS ORDERED: PROCARDIA XL30 MG PO (09:58)
--- NOTE | 2018-11-20 10:30 | NUR ---
PT TEARFUL SITTING UP IN BED. PT ENCOURAGED TO LIE DOWN AND REST FOR NOW. RX FOR PROCARDIA AND PERCOCET 5/325 GIVEN TO . TAKING RX TO PHARMACY TO BE FILLED.
--- NOTE | 2018-11-20 10:45 | NUR ---
CARY WITH CASE MANAGEMENT TO ROOM.
[2018-11-20 11:53] VITALS: BP 141/76
--- NOTE | 2018-11-20 11:53 | NUR ---
DR CHAUDHRY NOTIFIED OF LAST BP. ORDERS RECEIVED.
--- NOTE | 2018-11-20 12:15 | NUR ---
DISCHARGE INSTRUCTIONS GIVEN TO PT. PT VERBALIZES UNDERSTANDING OF ALL INSTRUCTIONS. COPIES GIVEN TO PT. PT PREPARES FOR DISCHARGE.
--- NOTE | 2018-11-20 12:22 | NUR ---
PERCOCET 10/325 GIVEN PO ORDERED FOR PT C/O PAIN OF "6" ON 0-10 PAIN SCALE.
--- NOTE | 2018-11-20 12:30 | NUR ---
PT READY FOR DISCHARGE. DISCHARGED IN STABLE CONDITION VIA WHEELCHAIR TO PRIVATE VEHICLE.
--- NOTE | 2018-11-20 13:11 | OP ---
PATIENT NAME: VALERIE AARON MEDICAL RECORD: [id number] [id number] ADMISSION DATE:11/18/18 SURGEON: KARIE CHAUDHRY DO DATE OF OPERATION: 11/18/2018 PREOPERATIVE DIAGNOSIS: Labor malpresentation. POSTOPERATIVE DIAGNOSIS: Labor malpresentation. PRIMARY SURGEON: Karie Chaudhry DO ANESTHESIOLOGIST: Anthony Nunes. PROCEDURE: Primary low transverse section via Pfannenstiel incision. FINDINGS: Male , weight 7 pounds 8-1/2 ounces, Apgars 8 and 9, delivered in breech presentation. Normal appearing uterus, bilateral fallopian tubes, bilateral ovaries. SPECIMENS: Placenta and cord blood. ESTIMATED BLOOD LOSS: 800 cc. IV FLUIDS: 2500 cc. URINE OUTPUT: 100 cc clear urine. COMPLICATIONS: None. CONDITION: Stable. DESCRIPTION OF PROCEDURE: The risks, benefits, alternatives and indications of the procedure were discussed with the patient. She voiced understanding of the procedure and signed the consent. She was taken to the OR where spinal anesthesia was administered and found to be adequate. She was placed in the dorsal supine position with a leftward tilt. She was prepped and draped in the normal sterile fashion. A Pfannenstiel skin incision was made with the scalpel and carried down to the underlying layer of the fascia with the Bovie. The fascia was incised in the midline and extended laterally. The inferior aspect of the fascial incision was grasped with Nayeli clamps and the rectus muscle was dissected off sharply. Attention was then turned to the superior aspect of the fascial incision and the rectus muscle was dissected off in a similar fashion. The rectus muscle was in the midline, down to the level of the peritoneum, and the peritoneum was identified and noted to be free of adherent bowel and entered bluntly. The peritoneum was further with gentle traction. The bladder blade was inserted. A bladder flap was created and the uterus was incised in a transverse fashion of lower uterine segment. The incision was extended with cephalad-caudad traction. The was delivered in breech presentation without difficulty. Mouth and nose were suctioned. Cord was clamped and cut and the infant was handed off to awaiting pediatricians. The placenta was manually removed. The uterus was exteriorized and a moist lap was used to assure complete removal of placental membranes. The hysterotomy was closed with 0 Vicryl in a running locked fashion with good hemostasis. The uterus, tubes and ovaries were noted to be normal. The abdomen was irrigated with warm sterile saline and the uterus, tubes and ovaries were returned back to OPERATIVE REPORT [id number] VALERIE AARON the abdominal cavity. The hysterotomy was reinspected and noted to be hemostatic. A moist laparotomy sponge was used to assure complete removal of blood clots and fluid from the abdominal cavity. The rectus muscle was closed with 2-0 Monocryl in a running fashion with good hemostasis. The fascial incision was closed with 0 Vicryl in a running fashion with good hemostasis. The subcutaneous fat was closed with 2-0 plain in a running fashion. The skin was closed with 3-0 Monocryl in a subcuticular fashion with good hemostasis and Dermabond covering. All needle, lap, sponge and instrument counts were correct times 2. The patient tolerated the procedure well and she was taken to recovery room in stable condition. TRANSINT:[id number] Voice Confirmation ID: [id number] DOCUMENT ID: [id number] KARIE CHAUDHRY DO at 1311 CC: [id number] DICTATION DATE: 11/18/18 0759 BOX COVERER HAND: 11/18/18 0848 DIS IN 11/20/18 [id number] [place] [address]
[2018-11-21 07:13] LABS: RAPID PLASMA REAGIN Non Reactive (Non Reactive)
== END 2018-11-20 12:30 | disposition home or self-care (01) | DRG 788 ==
LOC: D.LDO 05:08 → D.LD 05:30
PROVIDERS: ADMIT Student in an Organized Health Care Education/Training Program; ATTEND Student in an Organized Health Care Education/Training Program
PROC: 10D00Z1 Extraction of Products of Conception, Low, Open Approach (ICD-10-PCS; principal; 2018-11-18 06:15)
DX: O32.9XX0 Maternal care for malpresentation of fetus, unspecified, not applicable or unspecified (principal); Z3A.38 38 weeks gestation of pregnancy; Z37.0 Single live birth; O24.429 Gestational diabetes mellitus in childbirth, unspecified control; O13.4 Gestational [pregnancy-induced] hypertension without significant proteinuria, complicating childbirth; O90.81 Anemia of the puerperium; D64.9 Anemia, unspecified